=== PATIENT | female | born 2000 | race Caucasian/White ===

== ENCOUNTER 2021-11-20 10:49 | Observation (INO) | payer BC ==
[2021-11-20] MEDS ORDERED: ONDANSETRON 4 MG/2 ML VIAL IVP STA (11:36)
[2021-11-20] MEDS ORDERED: SODIUM CHLORIDE 0.9% 1,000 ML IV STA (11:36)
--- NOTE | 2021-11-20 11:57 | ED ---
General Adult HPI - General Chief complaint: Dizziness Stated complaint: nausea, near syncope, fever Time Seen by Provider: 11/20/21 11:07 Source: patient, family Mode of arrival: ambulatory Limitations: no limitations - History of Present Illness Initial comments: This 21-year-old female past medical history of migraines presents emergency Department with nausea, dizziness and 3 episodes of syncope since last night. Patient states last night around 5 PM she began to experience nausea. Patient states while lying on the couch she had an episoded of syncope while sitting there. Patient states she did feel lightheaded and felt like she was spinning a little bit before she had her syncopal episode. Patient states this happened again around 9:30 PM when she was lying on the couch. She states she was "out of it" for a few seconds. Mom in the room states she was there during these episodes and states she was breathing but was not unconscious for a couple of seconds. Patient states after her syncopal episode last night she did have an episode of vomiting. Patient states she was on the toilet this morning when another syncopal episode occurred and patient woke up on the ground. Mother states that patient's eyes did roll back in her head slightly and she was a little bit shaky, however it did not seem like convulsions to the mom. Patient denies any abdominal pain. Patient states she did take Tylenol last night. Patient denies any chest pain, shortness of breath, fever, change in bowel or bladder, hemoptysis, change in vision, blurred vision, back pain. - Related Data Home Medications Medication Instructions Recorded Confirmed No Known Home Medications 11/20/21 11/20/21 Allergies Allergy/AdvReac Type Severity Reaction Status Date / Time No Known Allergies Allergy Verified 11/20/21 12:33 Review of Systems ROS Statement: Those systems with pertinent positive or pertinent negative responses have been documented in the HPI. ROS Other: All systems not noted in ROS Statement are negative. Past Medical History Past Medical History: Asthma History of Any Multi-Drug Resistant Organisms: None Reported Past Surgical History: Adenoidectomy, Tonsillectomy Past Psychological History: No Psychological Hx Reported Smoking Status: Never smoker Past Alcohol Use History: Rare Past Drug Use History: None Reported - Past Family History Mother Additional Family Medical History / Comment(s): POTS General Exam Limitations: no limitations General appearance: alert, in no apparent distress Head exam: Present: atraumatic, normocephalic Eye exam: Present: normal appearance, PERRL, EOMI Pupils: Present: normal accommodation ENT exam: Present: mucous membranes moist Neck exam: Present: full ROM. Absent: tenderness, meningismus Respiratory exam: Present: normal lung sounds bilaterally. Absent: respiratory distress, wheezes, rales, rhonchi, stridor Cardiovascular Exam: Present: regular rate, normal rhythm, normal heart sounds. Absent: systolic murmur, diastolic murmur, rubs, gallop, clicks GI/Abdominal exam: Present: soft, normal bowel sounds. Absent: distended, tenderness, guarding, rebound, rigid Extremities exam: Present: normal inspection, full ROM, normal capillary refill. Absent: tenderness, pedal edema, joint swelling, calf tenderness Back exam: Present: full ROM. Absent: tenderness, CVA tenderness (R), CVA tenderness (L), paraspinal tenderness, vertebral tenderness Neurological exam: Present: alert, oriented X3, CN II-XII intact, normal gait Psychiatric exam: Present: normal affect, normal mood Skin exam: Present: warm, dry, intact, normal color. Absent: rash Course Vital Signs 11/20/21 11/20/21 11/20/21 10:50 11:59 13:38 Temperature 97.4 F L Pulse Rate 90 102 H 110 H Respiratory 18 18 18 Rate Blood Pressure 122/78 113/75 120/77 O2 Sat by Pulse 97 98 96 Oximetry 11/20/21 11/20/21 11/20/21 15:07 17:00 18:00 Temperature 99.5 F 98.5 F Pulse Rate 111 H 96 98 Respiratory 18 18 18 Rate Blood Pressure 110/62 109/70 109/70 O2 Sat by Pulse 96 96 98 Oximetry 11/20/21 11/20/21 20:30 21:22 Temperature 98.9 F Pulse Rate 97 100 Respiratory 18 18 Rate Blood Pressure 108/72 104/72 O2 Sat by Pulse 96 96 Oximetry EKG Findings - EKG Comments: EKG Findings:: EKG sinus rhythm. Ventricular rate 96 bpm. IA interval 164. QRS duration 99. QT/QTc is 338/391. No ST elevations or depressions noted. Medical Decision Making - Medical Decision Making This 21-year-old female presents emergency Department with nausea, vomiting, syncopal episodes. Vitals stable. Labs with white blood cells 12.4. PT/INR unremarkable. Chemistry unremarkable. Urine unremarkable. COVID-19, influenza negative. 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 Otherwise no evidence of acute abnormality, significant stenosis or occlusion of the major head or neck arteries. Further MRI assessment can be considered. CT brain without any acute intracranial hemorrhage, mass effect, or midline shift seen. Chest x-ray with mild prominence of cardiac silhouette for the patient's age, correlate for mild cardiomegaly. Slightly coarsened central interstitium maybe on the basis of reduced interstitial inspiration correlate clinically to exclude interstitial pneumonitis or mild bronchitis. She was started on Rocephin and Zithromax. Discussed case with Angella from Dr. Vera's service who agreed to admit patient to their service. consulted for neurology assessment and possible brain MRI. Case discussed with my attending, . Patient verbally agreed to plan. - Lab Data Result diagrams: 11/20/21 11:53 11/20/21 11:53 Lab Results 11/20/21 11/20/21 11/20/21 Range/Units 11:48 11:53 11:53 WBC 12.4 H (3.8-10.6) k/uL RBC 4.91 (3.80-5.40) m/uL Hgb 15.0 (11.4-16.0) gm/dL Hct 45.4 (34.0-46.0) % MCV 92.4 (80.0-100.0) fL MCH 30.6 (25.0-35.0) pg MCHC 33.1 (31.0-37.0) g/dL RDW 12.3 (11.5-15.5) % Plt Count 339 (150-450) k/uL MPV 7.2 Neutrophils % 88 % Lymphocytes % 5 % Monocytes % 5 % Eosinophils % 1 % Basophils % 0 % Neutrophils # 10.9 H (1.3-7.7) k/uL Lymphocytes # 0.7 L (1.0-4.8) k/uL Monocytes # 0.6 (0-1.0) k/uL Eosinophils # 0.1 (0-0.7) k/uL Basophils # 0.0 (0-0.2) k/uL PT 10.9 (9.0-12.0) sec INR 1.0 (<1.2) Sodium (137-145) mmol/L Potassium (3.5-5.1) mmol/L Chloride (98-107) mmol/L Carbon Dioxide (22-30) mmol/L Anion Gap mmol/L BUN (7-17) mg/dL Creatinine (0.52-1.04) mg/dL Est GFR (CKD-EPI)AfAm (>60 ml/min/1.73 sqM) Est GFR (CKD-EPI)NonAf (>60 ml/min/1.73 sqM) Glucose (74-99) mg/dL POC Glucose (mg/dL) 91 (75-99) mg/dL POC Glu Clinical Psychologist Private [facility] ID [facility] Plasma Lactic Acid Noé (0.7-2.0) mmol/L Calcium (8.4-10.2) mg/dL Total Bilirubin (0.2-1.3) mg/dL AST (14-36) U/L ALT (4-34) U/L Alkaline Phosphatase (38-126) U/L Total Protein (6.3-8.2) g/dL Albumin (3.5-5.0) g/dL Urine Color Urine Appearance (Clear) Urine pH (5.0-8.0) Ur Specific [place] (1.001-1.035) Urine Protein (Negative) Urine Glucose (UA) (Negative) Urine Ketones (Negative) Urine Blood (Negative) Urine Nitrite (Negative) Urine Bilirubin (Negative) Urine Urobilinogen (<2.0) mg/dL Ur Leukocyte Esterase (Negative) Urine RBC (0-5) /hpf Urine WBC (0-5) /hpf Ur Squamous Epith Cells (0-4) /hpf Amorphous Sediment (None) /hpf Urine Mucus (None) /hpf Urine HCG, Qual (Not Detectd) Coronavirus (PCR) (Not Detectd) Influenza Type A RNA (Not Detectd) Influenza Type B (PCR) (Not Detectd) 11/20/21 11/20/21 11/20/21 Range/Units 11:53 11:53 12:04 WBC (3.8-10.6) k/uL RBC (3.80-5.40) m/uL Hgb (11.4-16.0) gm/dL Hct (34.0-46.0) % MCV (80.0-100.0) fL MCH (25.0-35.0) pg MCHC (31.0-37.0) g/dL RDW (11.5-15.5) % Plt Count (150-450) k/uL MPV Neutrophils % % Lymphocytes % % Monocytes % % Eosinophils % % Basophils % % Neutrophils # (1.3-7.7) k/uL Lymphocytes # (1.0-4.8) k/uL Monocytes # (0-1.0) k/uL Eosinophils # (0-0.7) k/uL Basophils # (0-0.2) k/uL PT (9.0-12.0) sec INR (<1.2) Sodium 137 (137-145) mmol/L Potassium 3.8 (3.5-5.1) mmol/L Chloride 105 (98-107) mmol/L Carbon Dioxide 25 (22-30) mmol/L Anion Gap 7 mmol/L BUN 11 (7-17) mg/dL Creatinine 0.69 (0.52-1.04) mg/dL Est GFR (CKD-EPI)AfAm >90 (>60 ml/min/1.73 sqM) Est GFR (CKD-EPI)NonAf >90 (>60 ml/min/1.73 sqM) Glucose 100 H (74-99) mg/dL POC Glucose (mg/dL) (75-99) mg/dL POC Glu Clinical Psychologist Private Practice ID Plasma Lactic Acid Noé 0.8 (0.7-2.0) mmol/L Calcium 9.3 (8.4-10.2) mg/dL Total Bilirubin 1.0 (0.2-1.3) mg/dL AST 23 (14-36) U/L ALT 13 (4-34) U/L Alkaline Phosphatase 80 (38-126) U/L Total Protein 7.7 (6.3-8.2) g/dL Albumin 4.5 (3.5-5.0) g/dL Urine Color Urine Appearance (Clear) Urine pH (5.0-8.0) Ur Specific [place] (1.001-1.035) Urine Protein (Negative) Urine Glucose (UA) (Negative) Urine Ketones (Negative) Urine Blood (Negative) Urine Nitrite (Negative) Urine Bilirubin (Negative) Urine Urobilinogen (<2.0) mg/dL Ur Leukocyte Esterase (Negative) Urine RBC (0-5) /hpf Urine WBC (0-5) /hpf Ur Squamous Epith Cells (0-4) /hpf Amorphous Sediment (None) /hpf Urine Mucus (None) /hpf Urine HCG, Qual (Not Detectd) Coronavirus (PCR) Not Detected (Not Detectd) Influenza Type A RNA (Not Detectd) Influenza Type B (PCR) (Not Detectd) 11/20/21 11/20/21 11/20/21 Range/Units 12:08 12:08 13:25 WBC (3.8-10.6) k/uL RBC (3.80-5.40) m/uL Hgb (11.4-16.0) gm/dL Hct (34.0-46.0) % MCV (80.0-100.0) fL MCH (25.0-35.0) pg MCHC (31.0-37.0) g/dL RDW (11.5-15.5) % Plt Count (150-450) k/uL MPV Neutrophils % % Lymphocytes % % Monocytes % % Eosinophils % % Basophils % % Neutrophils # (1.3-7.7) k/uL Lymphocytes # (1.0-4.8) k/uL Monocytes # (0-1.0) k/uL Eosinophils # (0-0.7) k/uL Basophils # (0-0.2) k/uL PT (9.0-12.0) sec INR (<1.2) Sodium (137-145) mmol/L Potassium (3.5-5.1) mmol/L Chloride (98-107) mmol/L Carbon Dioxide (22-30) mmol/L Anion Gap mmol/L BUN (7-17) mg/dL Creatinine (0.52-1.04) mg/dL Est GFR (CKD-EPI)AfAm (>60 ml/min/1.73 sqM) Est GFR (CKD-EPI)NonAf (>60 ml/min/1.73 sqM) Glucose (74-99) mg/dL POC Glucose (mg/dL) (75-99) mg/dL POC Glu Clinical Psychologist Private Practice ID Plasma Lactic Acid Noé (0.7-2.0) mmol/L Calcium (8.4-10.2) mg/dL Total Bilirubin (0.2-1.3) mg/dL AST (14-36) U/L ALT (4-34) U/L Alkaline Phosphatase (38-126) U/L Total Protein (6.3-8.2) g/dL Albumin (3.5-5.0) g/dL Urine Color Yellow Urine Appearance Cloudy H (Clear) Urine pH 7.5 (5.0-8.0) Ur Specific [place] 1.029 (1.001-1.035) Urine Protein Trace H (Negative) Urine Glucose (UA) Negative (Negative) Urine Ketones 3+ H (Negative) Urine Blood Negative (Negative) Urine Nitrite Negative (Negative) Urine Bilirubin Negative (Negative) Urine Urobilinogen 6.0 (<2.0) mg/dL Ur Leukocyte Esterase Negative (Negative) Urine RBC 3 (0-5) /hpf Urine WBC 2 (0-5) /hpf Ur Squamous Epith Cells 8 H (0-4) /hpf Amorphous Sediment Occasional H (None) /hpf Urine Mucus Occasional H (None) /hpf Urine HCG, Qual Not Detected (Not Detectd) Coronavirus (PCR) (Not Detectd) Influenza Type A RNA Not Detected (Not Detectd) Influenza Type B (PCR) Not Detected (Not Detectd) Disposition Clinical Impression: Leukocytosis, Nausea and vomiting, Interstitial pneumonitis, Syncope Disposition: ADMITTED IP TO THIS HOSP Condition: Serious Time of Disposition: 16:57
[2021-11-20 12:00] LABS: Glucose,Whole Blood 91 mg/dL (75-99)
[2021-11-20 12:04] LABS: Basophils % (A) 0 %; Eosinophils # (A) 0.1 k/uL (0-0.7); Eosinophils % (A) 1 %; HCT 45.4 % (34.0-46.0); Lymphocytes # (A) 0.7 k/uL (1.0-4.8); Lymphocytes % (A) 5 %; MCH 30.6 pg (25.0-35.0); MCHC 33.1 g/dL (31.0-37.0); MCV 92.4 fL (80.0-100.0); Mean Platelet Volume 7.2; Monocytes # (A) 0.6 k/uL (0-1.0); Monocytes % (A) 5 %; Neutrophils # (A) 10.9 k/uL (1.3-7.7); Neutrophils % (A) 88 %; Platelet Count 339 k/uL (150-450); RBC 4.91 m/uL (3.80-5.40); RDW 12.3 % (11.5-15.5); WBC 12.4 k/uL (3.8-10.6)
[2021-11-20 12:14] LABS: ALT 13 U/L (4-34); AST 23 U/L (14-36); African American GFR (CKD) >90 (>60 ml/min/1.73 sqM); Albumin 4.5 g/dL (3.5-5.0); Alkaline Phosphatase 80 U/L (38-126); Anion Gap 7 mmol/L; Blood Urea Nitrogen 11 mg/dL (7-17); Calcium 9.3 mg/dL (8.4-10.2); Carbon Dioxide 25 mmol/L (22-30); Chloride 105 mmol/L (98-107); Glucose 100 mg/dL (74-99); Non-African American GFR(CKD) >90 (>60 ml/min/1.73 sqM); Potassium 3.8 mmol/L (3.5-5.1); Sodium 137 mmol/L (137-145); Total Protein 7.7 g/dL (6.3-8.2)
[2021-11-20 12:19] LABS: Prothrombin Time 10.9 sec (9.0-12.0)
[2021-11-20 12:43] LABS: Amorphous Sediment,Urine Occasional /hpf; Appearance,Urine Cloudy (Clear); Bilirubin,Urine Negative (Negative); Blood,Urine Negative (Negative); Color,Urine Yellow; Glucose,Urine (UA) Negative (Negative); Ketones,Urine 3+ (Negative); Leukocyte Esterase,Urine Negative (Negative); Mucus,Urine Occasional /hpf; Nitrite,Urine Negative (Negative); PH, Urine 7.5 (5.0-8.0); Protein,Urine Trace (Negative); RBC,Urine 3 /hpf (0-5); Specific Gravity,Urine 1.029 (1.001-1.035); Squamous Epithelial Cell,Urine 8 /hpf (0-4); WBC,Urine 2 /hpf (0-5)
--- NOTE | 2021-11-20 13:33 | XR ---
EXAMINATION TYPE: XR chest 2V DATE OF EXAM: 11/20/2021 COMPARISON: NONE TECHNIQUE: PA and lateral views submitted. HISTORY: Nausea and dizziness FINDINGS: The lungs are clear and there is no pneumothorax, pleural effusion, or focal pneumonia. Heart size is mildly prominent. There is a slightly coarsened interstitium. IMPRESSION: 1. Mild prominence of the cardiac silhouette for the patient's age correlate clinically for mild card iomegaly. Slightly coarsened central interstitium may be on the basis of reduced inspiration correlat e clinically to exclude interstitial pneumonitis or mild bronchitis.
--- NOTE | 2021-11-20 13:52 | CT ---
EXAMINATION TYPE: CT brain wo con DATE OF EXAM: 11/20/2021 COMPARISON: None HISTORY: Near syncope, fever, vertigo CT DLP: 1011.4 mGycm. Automated Exposure Control for Dose Reduction was Utilized. TECHNIQUE: CT scan of the head is performed without contrast. FINDINGS: There is no acute intracranial hemorrhage, mass effect, or midline shift identified. The ventricles and sulci are within normal limits in size. The globes are intact and the visualized sin uses are clear. IMPRESSION: No acute intracranial hemorrhage, mass effect, or midline shift is seen.
--- NOTE | 2021-11-20 15:15 | CT ---
EXAMINATION TYPE: CT angio head neck DATE OF EXAM: 11/20/2021 HISTORY: Syncope, nausea, near syncope, fever COMPARISON: Nonenhanced CT scan of the brain dated 11/20/2021 CT DLP: 515.4 mGycm. Automated Exposure Control for Dose Reduction was Utilized. TECHNIQUE: CTA scan of the neck is performed with IV Contrast, patient injected with 65 ml mL of Iso mimi 370, axial images are obtained, coronal and sagittal reformatted images are reviewed. 3D and MIP reconstructed images are created on an independent workstation and reviewed. FINDINGS: Bilateral -type centerless grinder. Slightly reduced caliber of the basilar artery probably due to the t ype centerless grinder however mild spasm cannot be excluded. Otherwise normal caliber enhancement of the neck arteries and intracranial arteries without significa nt stenosis, occlusion, dissection, aneurysm or AV malformation. Patent major intracranial venous sinuses. No intracranial abnormal enhancement. Scattered subcentimet er bilateral cervical lymph nodes, nonspecific. Progressive bone lesion. 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 Otherwise no evidence of acute abnormality, significant stenosis or occlusion of the major head or the neck arter ies. Considering the patient's presentation, further MRI assessment can be considered if clinically requir ed.
[2021-11-20] MEDS ORDERED: NALOXONE 0.4 MG/ML 1 ML VIAL IV PRN (16:38)
[2021-11-20] MEDS ORDERED: ONDANSETRON 4 MG/2 ML VIAL IVP PRN (16:38)
[2021-11-20] MEDS ORDERED: ACETAMINOPHEN TAB 325 MG TAB PO PRN (17:14)
[2021-11-20] MEDS: SODIUM CHLORIDE 0.9% 1,000 ML IV SCH (17:58)
[2021-11-20] MEDS ORDERED: PNEUMONIA PROTOCOL UTILIZED 1 EACH MISC PO PRN (19:22)
[2021-11-20] MEDS ORDERED: AZITHROMYCIN 500 MG in SODIUM CHLORIDE 0.9% 250 ML IVPB STA (19:22)
[2021-11-20 22:11] VITALS: RESP 16
[2021-11-21] MEDS: SODIUM CHLORIDE 0.9% 1,000 ML IV SCH ×3 (02:05→15:52)
[2021-11-21 04:20] VITALS: BP 102/71; TEMP 97.9
--- NOTE | 2021-11-21 14:25 | P.CNNES ---
History of Present Illness Consult date: 11/21/21 Reason for Consult: syncope, abnormal CT angiogram History of Present Illness: The patient is a very pleasant 21-year-old left-handed, female who is seen in neurologic consultation on November 21, 2021, via telemedicine. The patient is being seen because of syncope. Patient's mother is present at the bedside at the time of the evaluation. The patient reports that around 10:30 morning, she began to feel nauseated. She says the nausea resolved. She elected to go into work later in the afternoon of the next day, she says that she was sore feeling nauseated again with dizziness and vertigo. She felt as if she was going to vomit. This sensation passed. At the time of this sensation, the patient reportedly had an episode of syncope. She subsequently was sitting upright and had a second episode of syncope. Both of these episodes occurred associated with nausea and prior to vomiting. Patient then reports that the following day she continued to feel slightly nauseated. She did have a fever as well. She says she went to the bathroom to urinate and again passed out, while seated on the toilet. This also occurred, prior to vomiting. The patient's mother reports that she heard a thump and went into the bathroom to find her daughter laying on the floor. The patient reports waking, without confusion. She knew where she was. She was able to speak. There is no tongue biting or loss of bowel or bladder control. At that time, the patient's mother called 911. The patient does report having had other episodes of presyncope, associated with nausea related to migraine headaches. The patient denies numbness, tingling and weakness in her extremities. She denies visual changes. There is no headache or difficulty with speech. CT scan performed in the emergency department revealed no signs of acute hem orrhage or infarct. 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 Lab work in the emergency department revealed a slightly elevated white blood cell count. Urinalysis is without infection. Urine test is negative. Past Medical History Past Medical History: Asthma History of Any Multi-Drug Resistant Organisms: None Reported Past Surgical History: Adenoidectomy, Tonsillectomy Past Anesthesia/Blood Transfusion Reactions: No Reported Reaction Past Psychological History: No Psychological Hx Reported Smoking Status: Never smoker Past Alcohol Use History: Rare Past Drug Use History: None Reported - Past Family History Mother Additional Family Medical History / Comment(s): POTS Medications and Allergies Home Medications Medication Instructions Recorded Confirmed Type No Known Home Medications 11/20/21 11/20/21 History Allergies Allergy/AdvReac Type Severity Reaction Status Date / Time No Known Allergies Allergy Verified 11/20/21 12:33 Physical Examination - Vital Signs Vital Signs: Vital Signs Temp Pulse Pulse Pulse Pulse Pulse Resp 11/21/21 04:16 97.9 F 80 88 92 16 11/20/21 22:10 98.3 F 107 H 16 11/20/21 21:22 100 18 11/20/21 20:30 98.9 F 97 18 11/20/21 18:00 98 18 11/20/21 17:00 98.5 F 96 18 11/20/21 15:07 99.5 F 111 H 18 11/20/21 13:38 110 H 18 11/20/21 11:59 102 H 18 11/20/21 10:50 97.4 F L 90 18 BP BP BP BP BP Pulse Ox 11/21/21 04:16 104/73 108/76 102/71 96 11/20/21 22:10 110/70 98 11/20/21 21:22 104/72 96 11/20/21 20:30 108/72 96 11/20/21 18:00 109/70 98 11/20/21 17:00 109/70 96 11/20/21 15:07 110/62 96 11/20/21 13:38 120/77 96 11/20/21 11:59 113/75 98 11/20/21 10:50 122/78 97 Intake and Output 11/20/21 11/21/21 11/21/21 22:59 06:59 14:59 Intake Total 1170 Balance 1170 Intake: Intake, IV Titration 880 Amount Sodium Chloride 0.9% 1, 880 000 ml @ 130 mls/hr IV . [id number] [facility] Rx#:[id number] Oral 290 Other: # Voids 1 1 Weight 81.647 kg Gen.: The patient is seated in the bed. She is well-nourished, well-developed and in no acute distress. HEENT: Head is atraumatic, normocephalic. Fundus not visualized. There is no scleral icterus. Mucous membranes are moist. Neck: Supple, without carotid bruits Heart: Regular rate and rhythm Lungs: Clear to auscultation Extremities: Without edema Neurological examination Mental status: The patient is awake, alert and oriented 3. Her speech is clear. There is no dysarthria or aphasia. Cranial nerves: Pupils are equal at 3 mm and reactive. Visual merlos are full to confrontation. Extraocular movements are intact. There is no nystagmus. Facial sensation is intact. There is no facial asymmetry. Hearing is grossly intact. Uvula and palate are midline. Shoulder shrug is symmetric. Tongue protrudes midline. There is no evidence of laceration. Motor: Strength is 5/5 throughout. Coordination: Finger to nose and rapid alternating movements are intact. Deep tendon reflexes: 3+/4+ throughout. Sensation: Grossly intact to light touch throughout. There is no extinction with double simultaneous stimulation. Results - Laboratory Findings CBC and BMP: 11/20/21 11:53 11/20/21 11:53 Abnormal Lab Findings: Abnormal Labs 11/20/21 11/20/21 11/20/21 11:53 11:53 12:08 WBC 12.4 H Neutrophils # 10.9 H Lymphocytes # 0.7 L Glucose 100 H Urine Appearance Cloudy H Urine Protein Trace H Urine Ketones 3+ H Ur Squamous Epith Cells 8 H Amorphous Sediment Occasional H Urine Mucus Occasional H Assessment and Plan Assessment: 1. Syncope, related to nausea and vomiting. There are no signs or symptoms consistent with seizure 2. 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 The patient is neurologically stable for discharge Time with Patient: Greater than 30 (Spent 40 minutes with patient via telemedi cine)
[2021-11-21 14:37] VITALS: PULSE 89
[2021-11-21] MEDS ORDERED: AZITHROMYCIN 500 MG TAB PO SCH (18:00)
--- NOTE | 2021-12-07 10:45 | P.HPIM ---
History of Present Illness H&P Date: 11/21/21 Chief Complaint: syncopal episode 21-year-old female past medical history of migraines presents emergency Department with nausea, dizziness and 3 episodes of syncope since last night. Patient states last night around 5 PM she began to experience nausea. Patient states while lying on the couch she had an episoded of syncope while sitting there. Patient states she did feel lightheaded and felt like she was spinning a little bit before she had her syncopal episode. Patient states this happened again around 9:30 PM when she was lying on the couch. She states she was "out of it" for a few seconds. Mom in the room states she was there during these episodes and states she was breathing but was not unconscious for a couple of seconds. Patient states after her syncopal episode last night she did have an episode of vomiting. Patient states she was on the toilet this morning when another syncopal episode occurred and patient woke up on the ground. Mother states that patient's eyes did roll back in her head slightly and she was a little bit shaky, however it did not seem like convulsions to the mom. The patient does report having had other episodes of presyncope, associated with nausea related to migraine headaches. CT scan performed in the emergency department revealed no signs of acute hemorrhage or infarct. 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 Lab work in the emergency department revealed a slightly elevated white blood cell count. Urinalysis is without infection. Urine test is negative. Review of Systems Constitutional: Denies chills, Denies fever Cardiovascular: Reports syncope, Denies chest pain, Denies shortness of breath Respiratory: Denies cough, Denies dyspnea Genitourinary: Denies dysuria, Denies hematuria Musculoskeletal: Denies myalgias Integumentary: Denies pruritus, Denies rash Psychiatric: Denies anxiety, Denies depression Past Medical History Past Medical History: Asthma History of Any Multi-Drug Resistant Organisms: None Reported Past Surgical History: Adenoidectomy, Tonsillectomy Past Anesthesia/Blood Transfusion Reactions: No Reported Reaction Past Psychological History: No Psychological Hx Reported Smoking Status: Never smoker Past Alcohol Use History: Rare Past Drug Use History: None Reported - Past Family History Mother Additional Family Medical History / Comment(s): POTS Medications and Allergies Home Medications Medication Instructions Recorded Confirmed Type Azithromycin [Zithromax] 500 mg PO DAILY@1800 #9 tab 11/21/21 Rx Allergies Allergy/AdvReac Type Severity Reaction Status Date / Time No Known Allergies Allergy Verified 11/20/21 12:33 Physical Exam Vitals: Vital Signs Temp Pulse Pulse Pulse Pulse Pulse Resp 11/21/21 08:00 89 16 11/21/21 04:16 97.9 F 80 88 92 16 11/20/21 22:10 98.3 F 107 H 16 11/20/21 21:22 100 18 11/20/21 20:30 98.9 F 97 18 11/20/21 18:00 98 18 11/20/21 17:00 98.5 F 96 18 BP BP BP BP BP Pulse Ox 11/21/21 08:00 11/21/21 04:16 104/73 108/76 102/71 96 11/20/21 22:10 110/70 98 11/20/21 21:22 104/72 96 11/20/21 20:30 108/72 96 11/20/21 18:00 109/70 98 11/20/21 17:00 109/70 96 Intake and Output 11/21/21 11/21/21 11/21/21 06:59 14:59 22:59 Intake Total 1170 240 Balance 1170 240 Intake: Intake, IV Titration 880 Amount Sodium Chloride 0.9% 1, 880 000 ml @ 130 mls/hr IV . [id number] [facility] Rx#:[id number] Oral 290 240 Other: # Voids 1 General appearance: alert, in no apparent distress Head exam: Present: atraumatic, normocephalic Eye exam: Present: normal appearance, PERRL, EOMI Pupils: Present: normal accommodation ENT exam: Present: mucous membranes moist Neck exam: Present: full ROM. Absent: tenderness, meningismus Respiratory exam: Present: normal lung sounds bilaterally. Absent: respiratory distress, wheezes, rales, rhonchi, stridor Cardiovascular Exam: Present: regular rate, normal rhythm, normal heart sounds. Absent: systolic murmur, diastolic murmur, rubs, gallop, clicks GI/Abdominal exam: Present: soft, normal bowel sounds. Absent: distended, tenderness, guarding, rebound, rigid Extremities exam: Present: normal inspection, full ROM, normal capillary refill. Absent: tenderness, pedal edema, joint swelling, calf tenderness Back exam: Present: full ROM. Absent: tenderness, CVA tenderness (R), CVA tenderness (L), paraspinal tenderness, vertebral tenderness Neurological exam: Present: alert, oriented X3, CN II-XII intact, normal gait Psychiatric exam: Present: normal affect, normal mood Skin exam: Present: warm, dry, intact, normal color. Absent: rash Results CBC & Chem 7: 11/20/21 11:53 11/20/21 11:53 Thrombosis Risk Factor Assmnt - Choose All That Apply Any of the Below Risk Factors Present?: Yes Each Factor Represents 1 point: Obesity (BMI >25) Other Risk Factors: No Other congenital or acquired thrombophilia - If yes, enter type in comment: No Thrombosis Risk Factor Assessment Total Risk Factor Score: 1 Thrombosis Risk Factor Assessment Level: Low Risk Assessment and Plan Assessment: 1. Syncope; -- patient evaluated by tele-neurology and syncopal episode deemed related to nausea and vomiting. There are no signs or symptoms consistent with seizure. 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 Migraine Headaches; follow up with Neuro as out patient DVT Ppx; early ambulation CODE STATUS; FULL CODE
--- NOTE | 2021-12-07 10:47 | P.DS ---
Providers Date of admission: 11/20/21 16:39 Expected date of discharge: 11/21/21 Attending physician: Cali Vera Consults: 11/20/21 18:28 Consult Physician Routine Consulting Provider: Brett Sena Consult Reason/Comments: Syncope, abnormal CTA brain/neck Do you want consulting provider notified?: Yes Primary care physician: Margarito Lama [facility] Course: 21-year-old female past medical history of migraines presents emergency Department with nausea, dizziness and 3 episodes of syncope since last night. Patient states last night around 5 PM she began to experience nausea. Patient states while lying on the couch she had an episoded of syncope while sitting there. Patient states she did feel lightheaded and felt like she was spinning a little bit before she had her syncopal episode. Patient states this happened again around 9:30 PM when she was lying on the couch. She states she was "out of it" for a few seconds. Mom in the room states she was there during these episodes and states she was breathing but was not unconscious for a couple of seconds. Patient states after her syncopal episode last night she did have an episode of vomiting. Patient states she was on the toilet this morning when another syncopal episode occurred and patient woke up on the ground. Mother states that patient's eyes did roll back in her head slightly and she was a little bit shaky, however it did not seem like convulsions to the mom. The patient does report having had other episodes of presyncope, associated with nausea related to migraine headaches. CT scan performed in the emergency department revealed no signs of acute hemorrhage or infarct. 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 Lab work in the emergency department revealed a slightly elevated white blood cell count. Urinalysis is without infection. Urine test is negative. 1. Syncope; -- patient evaluated by tele-neurology and syncopal episode deemed related to nausea and vomiting. There are no signs or symptoms consistent with seizure. 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 Migraine Headaches; follow up with Neuro as out patient Patient Condition at Discharge: Undetermined Plan - Discharge Summary Discharge Rx Participant: Yes New Discharge Prescriptions: New Azithromycin [Zithromax] 500 mg PO DAILY@1800 #9 tab Discharge Medication List Azithromycin [Zithromax] 500 mg PO DAILY@1800 #9 tab 11/21/21 [Rx] Follow up Appointment(s)/Referral(s): Margarito Lama MD [Primary Care Provider] - 1-2 days Discharge Disposition: HOME SELF-CARE
== END 2021-11-21 16:45 | disposition home or self-care (01) ==
LOC: EC 10:49 → 5NMEDONC 16:39
PROVIDERS: ADMIT Hospitalist; ATTEND Hospitalist
DX: R55 Syncope and collapse (principal); R42 Dizziness and giddiness; R11.2 Nausea with vomiting, unspecified; G46.2 Posterior cerebral artery syndrome; G43.909 Migraine, unspecified, not intractable, without status migrainosus; J45.909 Unspecified asthma, uncomplicated; I51.7 Cardiomegaly; J84.89 Other specified interstitial pulmonary diseases; D72.829 Elevated white blood cell count, unspecified; R93.0 Abnormal findings on diagnostic imaging of skull and head, not elsewhere classified; E66.9 Obesity, unspecified; Z68.30 Body mass index [BMI] 30.0-30.9, adult; Z20.822 Contact with and (suspected) exposure to COVID-19; Z98.890 Other specified postprocedural states; Z82.49 Family history of ischemic heart disease and other diseases of the circulatory system
CPT/HCPCS: 96366 ×2; 96361; 96365; 96367; 96375; 99285; 36415; 93005; 80053; 83605; 85025; 85610; 81001; 81025; 87040; 87070; 87205; 87502; 87635; 71046; 70496; 70450; 70498; G0378 ×2; J2405; J0456; J0696 ×2; Q9967